=== PATIENT | male | born 1930 | race African-American/Black ===

== ENCOUNTER 2018-07-18 13:41 | Emergency (ER) | payer MEDICARE ==
[~2018-07-18] VITALS: Ht 177.8 cm; Wt 75.0 kg
[2018-07-18] MEDS ORDERED: HYDROCODONE/ACETAMINOPHEN 5/325MG TABLET PO ONE (14:45)
[2018-07-18 17:45] VITALS: BP 122/82
== END 2018-07-18 17:58 | disposition home or self-care (01) ==
LOC: ER 13:41
DX: S42.391A Other fracture of shaft of right humerus, initial encounter for closed fracture (principal); X58.XXXA Exposure to other specified factors, initial encounter; Y93.89 Activity, other specified; Y92.89 Other specified places as the place of occurrence of the external cause; Y99.8 Other external cause status
CPT/HCPCS: 29105; 73030; 99283; A4565